=== PATIENT | female | born 1945 | race Caucasian/White ===

== ENCOUNTER 2018-05-24 22:15 | Inpatient (IN) | payer OTHER ==
[~2018-05-24] VITALS: Ht 162.6 cm; Wt 122.5 kg
--- NOTE | ~2018-05-24 | 2DMMODE ---
[facility] [place] [address] 2 D/M-MODE ECHOCARDIOGRAM Name: MOLLY ARMENDARIZ Room #: 218-P ADM IN M.R.#: [id number] Admission: 05/25/18 Attend Phys: Adria Fallon Discharge: Date of : 47 Date of Service: 05/25/18 0856 Report #: [id number] THIS REPORT FOR: //name// APPROVED REPORT Study performed: 05/25/2018 08:05:10 EXAM: Comprehensive 2D, Doppler, and color-flow Echocardiogram Patient Location: Bedside Status: routine BSA: 2.22 HR: 62 bpm BP: 142/63 mmHg Rhythm: NSR Other Information Study Quality: Good Indications Chest Pain Hx: HTN, CAD 2D Dimensions RVDd: 39.48 mm IVSd: 10.79 (7-11mm) LVOT Diam: 20.41 (18-24mm) LVDd: 55.50 mm PWd: 10.64 (7-11mm) Ascending Ao: 34.50 (22-36mm) LVDs: 35.60 (25-40mm) Aortic Root: 29.35 mm Volumes Left Atrial Volume (Systole) Single Plane 4CH: 52.73 mL Single Plane 2CH: 55.19 mL LA ESV Index: 26.00 mL/m2 Aortic Valve AoV Peak Chuck.: 2.14 m/s AO Peak Gr.: 18.39 mmHg LVOT Max P.83 mmHg LVOT Max V: 1.65 m/s TREVOR Vmax: 2.51 cm2 Mitral Valve E/A Ratio: 1.2 MV Decel. Time: 227.44 ms [facility] [address] [place] [address] 2 D/M-MODE ECHOCARDIOGRAM Name: MARCELLOMOLLY CRISTOFER Room #: 218-P [facility]#: [id number] Admission: 05/25/18 Attend Phys: Adria Fallon Discharge: Date of : 47 Date of Service: 05/25/18 0856 Report #: [id number] MV E Max Chuck.: 1.02 m/s MV A Chuck.: 0.83 m/s MV PHT: 65.96 ms IVRT: 87.66 ms Pulmonary Valve PV Peak Chuck.: 1.09 m/s PV Peak Gr.: 4.71 mmHg Pulmonary Vein P Vein S: 0.87 m/s P Vein A: 0.28 m/s P Vein D: 0.71 m/s P Vein A Dur.: 138.4 msec P Vein S/D Ratio: 1.23 Tricuspid Valve TR Peak Chuck.: 2.39 m/s RAP Estimate: 5.00 mmHg TR Peak Gr.: 22.81 mmHg Left Ventricle The left ventricle is normal size. There is normal LV segmental wall motion. Borderline concentric left ventricular hypertrophy. Left ventricular systolic function is normal. LVEF is 60-65%. Right Ventricle The right ventricle is normal size. The right ventricular systolic function is normal. Atria The left atrium size is normal. The right atrium size is normal. Aortic Valve The aortic valve is normal in structure. Trace aortic regurgitation. There is no aortic valvular stenosis. Mitral Valve The mitral valve is normal in structure. Mild mitral regurgitation. Tricuspid Valve The tricuspid valve is normal in structure. Trace tricuspid regurgitation. Estimated PAP is 25-30mmHg. Pulmonic Valve Pulmonic valve is not well visualized. There is no pulmonic valvular regurgitation. [facility] [address] [address] 2 D/M-MODE ECHOCARDIOGRAM Name: MARCELLOMOLLY CRISTOFER Room #: 218-P ADM IN M.R.#: [id number] Admission: 05/25/18 Attend Phys: Adria Fallon Discharge: Date of : 47 Date of Service: 05/25/18 0856 Report #: [id number] Great Vessels The aortic root is normal in size. The ascending aorta is normal in size. IVC is normal in size and collapses >50% with inspiration. Pericardium There is no pericardial effusion. <Conclusion> Left ventricular systolic function is normal. There is normal LV segmental wall motion. LVEF 60-65%. The aortic valve is normal in structure. Trace aortic regurgitation, no stenosis. The mitral valve is normal in structure. Mild mitral regurgitation. Trace tricuspid regurgitation. Estimated pulmonary artery pressure of 25-30mmHg. There is no pericardial effusion. <ELECTRONICALLY SIGNED> By: Lane Lane MD, FACC 05/25/[address] MD, FACC /INF
--- NOTE | ~2018-05-24 | EKG ---
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
[2018-05-24 22:21] VITALS: BP 201/78
[2018-05-24 23:11] LABS: HEMATOCRIT 37.5 % (37.0-47.0); HEMOGLOBIN 12.8 gm/dL (12.0-15.0); MCH 29.7 pg (26.0-34.0); MCHC 34.1 g/dL (28.0-37.0); MCV 87.1 fL (80.0-100.0); PLATELET COUNT 285 thou/uL (150-400); RBC 4.31 mil/uL (4.20-5.00); RDW 13.3 % (10.5-14.5); WBC 8.6 thou/uL (4.0-11.0)
[2018-05-24 23:14] LABS: ANION GAP 8 mmol/L (7-16); BUN 34 mg/dL (7-18); CALCIUM 9.9 mg/dL (8.5-10.1); CHLORIDE 103 mmol/L (98-107); CO2 29 mmol/L (21-32); CREATININE 1.5 mg/dL (0.6-1.0); GLUCOSE 119 mg/dL (74-106); POTASSIUM 4.1 mmol/L (3.5-5.1); SODIUM 140 mmol/L (136-145)
[2018-05-24 23:23] LABS: ALBUMIN 3.8 g/dL (3.4-5.0); MAGNESIUM 1.9 mg/dL (1.8-2.4); SGOT 20 U/L (15-37); SGPT 31 U/L (30-65); TOTAL BILIRUBIN 0.3 mg/dL (<0.1-1.0); TOTAL PROTEIN 8.1 g/dL (6.4-8.2); TROPONIN-I <0.06 ng/mL (<0.06)
[2018-05-24 23:25] LABS: APTT 28.3 Seconds (24.5-32.8); D-DIMER 0.89 ug/mLFEU (0.19-0.50)
[2018-05-24 23:43] LABS: ABSOLUTE NEUTROPHILS 3.4 thou/uL (1.4-8.2); ATYPICAL LYMPHS 5 %; LARGE PLATELETS OCCASIONAL
[2018-05-25 00:16] VITALS: BP 154/61
[2018-05-25 00:21] VITALS: BP 137/50
[2018-05-25] MEDS ORDERED: LISINOPRIL-HCT1 EAC1 PO (01:13)
[2018-05-25] MEDS ORDERED: MOBIC15 MG PO (01:13)
[2018-05-25] MEDS ORDERED: HUMIRA40 MG/0.4 SUBQ (01:15)
[2018-05-25] MEDS ORDERED: ZYRTEC10 M4 PO (01:16)
[2018-05-25 04:08] LABS: CHOLESTEROL 194 mg/dL (<200); HDL CHOLESTEROL 53 mg/dL (>40); LDL CHOLESTEROL 125 mg/dL (<100); TC:HDL 3.7 Ratio (Not establshd); TRIGLYCERIDE 83 mg/dL (<150); VLDL 17 mg/dL (<40)
[2018-05-25 04:09] LABS: SERUM ASSESSMENT Clear
[2018-05-25 05:36] VITALS: BP 142/67
[2018-05-25 07:10] VITALS: BP 142/63
[2018-05-25 15:41] VITALS: BP 136/49
[2018-05-25 19:11] LABS: GLYCOHEMOGLOBIN (HGB A1C) 5.5 % (4.8-5.6)
[2018-05-25 20:45] VITALS: BP 163/60
[2018-05-26 04:28] VITALS: BP 155/76
[2018-05-26 04:43] LABS: CALCIUM 9.1 mg/dL (8.5-10.1); CREATININE 1.2 mg/dL (0.6-1.0); POTASSIUM 4.4 mmol/L (3.5-5.1)
[2018-05-26 08:05] VITALS: BP 146/70
[2018-05-26] MEDS ORDERED: PROTONIX40 M1 PO (11:44)
[2018-05-26 12:41] VITALS: BP 146/70
[2018-05-26 15:00] VITALS: BP 146/70
== END 2018-05-26 15:00 | disposition home or self-care (01) | DRG 683 ==
LOC: ER 22:15 → EROBS 05-25 00:06 → 2N 05-25 00:06
PROVIDERS: Emergency Medicine; Nurse Practitioner Family
DX: N17.9 Acute kidney failure, unspecified (principal); Z68.42 Body mass index [BMI] 45.0-49.9, adult; I10 Essential (primary) hypertension; I25.10 Atherosclerotic heart disease of native coronary artery without angina pectoris; G47.33 Obstructive sleep apnea (adult) (pediatric); E66.9 Obesity, unspecified; E78.5 Hyperlipidemia, unspecified; M62.84 Sarcopenia; L40.50 Arthropathic psoriasis, unspecified; K21.9 Gastro-esophageal reflux disease without esophagitis; Z87.891 Personal history of nicotine dependence; Z79.82 Long term (current) use of aspirin; Z79.899 Other long term (current) drug therapy; Z95.5 Presence of coronary angioplasty implant and graft
CPT/HCPCS: 10081

== ENCOUNTER → 2020-02-22 | Outpatient (CLI) | payer OTHER ==
[~2020-02-22] MED LIST: HUMIRA40 MG/0.4 SUBQ; LISINOPRIL-HCT1 EAC1 PO; MOBIC15 MG PO; PROTONIX40 M1 PO; ZYRTEC10 M4 PO
== END ==
LOC: SJCVCIMAG 02-21 10:40
PROVIDERS: ATTEND Internal Medicine Cardiovascular Disease
DX: I25.10 Atherosclerotic heart disease of native coronary artery without angina pectoris (principal); G47.33 Obstructive sleep apnea (adult) (pediatric); E78.5 Hyperlipidemia, unspecified; I10 Essential (primary) hypertension; Z87.891 Personal history of nicotine dependence; Z79.899 Other long term (current) drug therapy

== ENCOUNTER → 2020-03-07 | Outpatient (CLI) | payer OTHER ==
[~2020-03-07] VITALS: Ht 162.6 cm; Wt 120.0 kg
[~2020-03-07] MED LIST changes: +ASA81BEC PO; +CHOLECALCIFEROL1 GM PO; +CRESTOR20 MG PO; +LOSARTAN POTASS50 MG PO; +LOVAZA1000 MG PO; +VITAMIN B-121000 MC2 SUBLING; +VITAMIN C1000 MG PO
[2020-03-07 07:19] LABS: HEMATOCRIT 33.2 % (37.0-47.0); HEMOGLOBIN 10.9 gm/dL (12.0-15.0); MCH 27.3 pg (26.0-34.0); MCHC 32.9 g/dL (28.0-37.0); MCV 82.8 fL (80.0-100.0); RDW 14.8 % (10.5-14.5); WBC 10.4 thou/uL (4.0-11.0)
[2020-03-07 07:20] VITALS: BP 119/49
[2020-03-07 07:34] LABS: CALCIUM 9.1 mg/dL (8.5-10.1)
--- NOTE | 2020-03-07 08:53 | EKG ---
[facility] [place] [address] ELECTROCARDIOGRAM REPORT Name: MOLLY ARMENDARIZ Room #: REG CL M.R.#: [id number] Admission: 03/07/20 Attend Phys: Tima Puckett MD, Discharge: Date of : 47 Report #: [id number] THIS REPORT FOR: cc: Noemi Rios MD, Amir R. MD Lundgren,Lane Duron MD [facility] ~ THIS REPORT FOR: //name// 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1945 Requested By: Tima Puckett Order Number: [id number] MD: Lane Lane Measurements Intervals [place] Rate: 65 P: 46 ND: 171 QRS: 30 QRSD: 101 T: 7 QT: 420 QTc: 437 Interpretive Statements Sinus rhythm Minimal ST elevation, lateral leads Baseline wander in lead(s) V5 Compared to ECG 05/24/2018 22:31:00 No significant change was found Electronically Signed On 03-07-2020 8:53:[address] [email or web address] <ELECTRONICALLY SIGNED> By: Lane Lane MD, [facility] 03/07/20 [phone] MD, [facility] /EPI
== END | disposition home or self-care (01) ==
LOC: CATH 06:30
PROVIDERS: ATTEND Internal Medicine Cardiovascular Disease
DX: R94.39 Abnormal result of other cardiovascular function study (principal); Z53.8 Procedure and treatment not carried out for other reasons; I10 Essential (primary) hypertension; E78.5 Hyperlipidemia, unspecified; G47.33 Obstructive sleep apnea (adult) (pediatric); Z98.890 Other specified postprocedural states; Z79.899 Other long term (current) drug therapy

== ENCOUNTER → 2020-03-10 | Outpatient (CLI) | payer OTHER | LOC: SJCVCIMAG 08:55 | PROVIDERS: ATTEND Internal Medicine Cardiovascular Disease | DX: I25.10 Atherosclerotic heart disease of native coronary artery without angina pectoris (principal); I12.9 Hypertensive chronic kidney disease with stage 1 through stage 4 chronic kidney disease, or unspecified chronic kidney disease; N18.3 Chronic kidney disease, stage 3 (moderate); E78.00 Pure hypercholesterolemia, unspecified; R94.39 Abnormal result of other cardiovascular function study; I70.1 Atherosclerosis of renal artery; Z79.899 Other long term (current) drug therapy; Z87.891 Personal history of nicotine dependence ==

== ENCOUNTER → 2020-03-12 | Outpatient (CLI) | payer OTHER ==
[2020-03-12 07:12] VITALS: BP 152/63
--- NOTE | 2020-03-12 20:25 | CATHLAB ---
[facility] [place] [address] INVASIVE PROCEDURE REPORT Name: MOLLY ARMENDARIZ Room #: REG [place] [place]#: [id number] Admission: 03/12/20 Attend Phys: Tima Puckett MD, Discharge: Date of : 47 Report #: [id number] THIS REPORT FOR: cc: Noemi Rios MD, Amir R. MD Mancuso, Gerald M. MD [facility] ~ APPROVED REPORT Study performed: 03/12/2020 07:40:33 Patient Details The patient is a 74 year-old female Procedure Narrative The patient was brought electively to the Cardiac Catheterization Laboratory and was prepped and draped in a sterile manner. The Right Groin^ was infiltrated with 1% Lidocaine subcutaneous anesthesia. A PINNACLE 6FR Sheath #[id number] sheath was inserted into the RFA 6F^. Coronary angiography was performed using coronary diagnostic catheters. The right coronary system was accessed and visualized with a JR4 catheter. The left coronary system was accessed and visualized with a JL5 catheter. The left ventricle was accessed and visualized with a PIGTAIL catheter. The patient tolerated the procedure well and there were no complications associated with the procedure. There was no hematoma. Intraoperative Conscious Sedation Fentanyl 50 mcg Versed 1 mg Fluoro Time: 2.20 minutes Dose: DAP 6433.70 cGycm2 Contrast Type and Amount: Visipaque 50 ml Hemodynamics The aortic pressure is 126/60 mmHg with a mean of 84 mmHg. The left ventricular pressure is 144/16 mmHg with a mean of mmHg. The left ventricular end diastolic pressure is 28 mmHg. Conclusion 1. Normal left ventricular size and systolic function EF 60% #2 left main short free of disease giving rise to LAD and circumflex #3 LAD with mild irregularities 30 to 40% proximal eccentric lesion 50% mid distal disease. [facility] [address] [place] [address] INVASIVE PROCEDURE REPORT Name: MOLLY ARMENDARIZ [id number] Admission: 03/12/20 Attend Phys: Tima Puckett, Discharge: Date of : 47 Report #: [id number] #4 circumflex OM moderate distribution. The circumflex and first OM branch have mild disease. In the mid circumflex takeoff of the second OM branch has a 80 to 90% eccentric lesion in a relatively small distribution. Would continue to treat this medically this is approximately a 2.0 vessel. #5 dominant right coronary artery with an eccentric mid vessel lesion of 50% with a well-preserved distal RCA PDA LEYDI also free of disease Recommendations and plan: Continue aggressive risk factor modification no indication for coronary intervention. The small second OM branch would treat medically. <ELECTRONICALLY SIGNED> By: Tima Puckett MD, [facility] 03/12/202023 23 23 Tima Puckett MD, FACC /INF
== END | disposition home or self-care (01) ==
LOC: CATH 06:34
PROVIDERS: ATTEND Internal Medicine Cardiovascular Disease
DX: I25.10 Atherosclerotic heart disease of native coronary artery without angina pectoris (principal); I12.9 Hypertensive chronic kidney disease with stage 1 through stage 4 chronic kidney disease, or unspecified chronic kidney disease; N18.3 Chronic kidney disease, stage 3 (moderate); E78.00 Pure hypercholesterolemia, unspecified; G47.33 Obstructive sleep apnea (adult) (pediatric); Z98.890 Other specified postprocedural states; Z79.899 Other long term (current) drug therapy

== ENCOUNTER → 2020-10-29 | Outpatient (CLI) | payer OTHER | LOC: RAD 15:22 | PROVIDERS: ATTEND Nurse Practitioner | DX: K57.30 Diverticulosis of large intestine without perforation or abscess without bleeding (principal); M47.816 Spondylosis without myelopathy or radiculopathy, lumbar region; E27.8 Other specified disorders of adrenal gland; M48.061 Spinal stenosis, lumbar region without neurogenic claudication; M25.78 Osteophyte, vertebrae; R19.5 Other fecal abnormalities; K40.90 Unilateral inguinal hernia, without obstruction or gangrene, not specified as recurrent ==

== ENCOUNTER → 2020-12-10 | Outpatient (CLI) | payer OTHER | LOC: SJCVC 12:15 | PROVIDERS: ATTEND Internal Medicine Cardiovascular Disease | DX: R94.31 Abnormal electrocardiogram [ECG] [EKG] (principal); I25.10 Atherosclerotic heart disease of native coronary artery without angina pectoris; E78.00 Pure hypercholesterolemia, unspecified; I12.9 Hypertensive chronic kidney disease with stage 1 through stage 4 chronic kidney disease, or unspecified chronic kidney disease; N18.4 Chronic kidney disease, stage 4 (severe); R06.00 Dyspnea, unspecified; E78.5 Hyperlipidemia, unspecified; G47.33 Obstructive sleep apnea (adult) (pediatric); Z95.828 Presence of other vascular implants and grafts; Z95.5 Presence of coronary angioplasty implant and graft; Z79.899 Other long term (current) drug therapy; Z87.891 Personal history of nicotine dependence; Z82.49 Family history of ischemic heart disease and other diseases of the circulatory system ==

== ENCOUNTER → 2021-09-08 | Outpatient (CLI) | payer OTHER | LOC: SJCVC 14:03 | PROVIDERS: ATTEND Internal Medicine Cardiovascular Disease | DX: R94.31 Abnormal electrocardiogram [ECG] [EKG] (principal); I48.92 Unspecified atrial flutter; I44.30 Unspecified atrioventricular block; I25.10 Atherosclerotic heart disease of native coronary artery without angina pectoris; E78.00 Pure hypercholesterolemia, unspecified; I12.9 Hypertensive chronic kidney disease with stage 1 through stage 4 chronic kidney disease, or unspecified chronic kidney disease; N18.9 Chronic kidney disease, unspecified; R06.00 Dyspnea, unspecified; E78.5 Hyperlipidemia, unspecified; Z79.899 Other long term (current) drug therapy; Z87.891 Personal history of nicotine dependence; Z79.82 Long term (current) use of aspirin ==